=== PATIENT | female | born 1970 | race African-American/Black ===

== ENCOUNTER 2025-02-21 15:12 | Emergency (ER) | payer BC ==
[~2025-02-21] VITALS: Ht 175.3 cm; Wt 137.0 kg
[2025-02-21 15:15] VITALS: O2SAT 99
[2025-02-21 16:25] VITALS: BP 130/60; PULSE 87; RESP 16; TEMP 37; O2SAT 99
== END 2025-02-21 16:44 | disposition home or self-care (01) ==
LOC: ER 15:12
DX: R55 Syncope and collapse (principal); Z88.6 Allergy status to analgesic agent; Z98.84 Bariatric surgery status
CPT/HCPCS: 93005; 99283